=== PATIENT | female | born 1990 | race Caucasian/White ===

== ENCOUNTER 2022-01-30 01:09 | Day surgery (SDC) | payer OTHER ==
[2022-01-30 01:56] LABS: BASOPHIL 0.1 % (0-2); EOSINOPHIL 0 % (0-5); HCT 39.2 % (37.0-47.0); LYMPHOCYTE 17.3 % (15-48); MCH 30.4 pg (25.0-31.0); MCHC 33.2 g/dL (32.0-36.0); MCV 91.6 fL (78.0-100.0); MPV 9.5 fL (6.0-9.5); NEUTROPHIL 75.3 % (41-80); NRBC 0; PLT 279 K/uL (150-400); RBC 4.28 M/uL (4.20-5.40); RDW 12.8 % (11.5-14.0); WBC 11.3 K/uL (4.0-10.5)
[2022-01-30 02:11] LABS: BILIRUBIN NEGATIVE (NEGATIVE); BLOOD NEGATIVE Ery/uL (NEGATIVE); CLARITY CLEAR (CLEAR); COLOR YELLOW (YELLOW); GLUCOSE (U) NORMAL (NORMAL); LEUKOCYTES NEGATIVE Leu/uL (NEGATIVE); NITRITE NEGATIVE (NEGATIVE); PROTEIN NEGATIVE (NEGATIVE); UROBILINOGEN 0.2 mg/dL (0.2-1.0); pH 6.5 (5.0-9.0)
[2022-01-30 02:13] LABS: ALBUMIN 3.3 g/dL (3.4-5.0); BILIRUBIN - TOTAL 0.3 mg/dL (0.2-1.0); BUN/CREAT RATIO (CALC) 17.1 RATIO; CREATININE 0.76 mg/dL (0.51-0.95); GLOBULIN (CALCULATION) 3.7 g/dL; POTASSIUM 3.9 mmol/L (3.5-5.1)
[2022-01-30 02:46] LABS: CORONAVIRUS 2019 SARS-COV-2 NEGATIVE (NEGATIVE); INFLUENZA A NAA NEGATIVE (NEGATIVE)
[2022-01-30] MEDS ORDERED: OXY-IR 5MG5 MG PO (08:16)
[2022-01-30] MEDS ORDERED: COLACE100 MG PO (08:16)
[2022-01-30] MEDS ORDERED: MOTRIN600 MG PO (08:16)
[2022-01-30] MEDS ORDERED: ACETAMINOPHEN500 M1 PO (08:16)
== END 2022-01-30 09:59 | disposition home or self-care (01) ==
LOC: FER 01:09 → FAS 09:00
PROVIDERS: Emergency Medicine
DX: K35.30 Acute appendicitis with localized peritonitis, without perforation or gangrene (principal); I10 Essential (primary) hypertension; Z88.1 Allergy status to other antibiotic agents; Z87.891 Personal history of nicotine dependence; Z20.822 Contact with and (suspected) exposure to COVID-19
CPT/HCPCS: 36415; 80053; 81003; 82150; 83690; 84703; 85025; J1170; J1644; J2250; J2270; J2405; J2543; J2704; J2710; J3010; J7030; J7120; Q9967; U0002